=== PATIENT | female | born 1970 | race African-American/Black ===

== ENCOUNTER → 2022-10-24 14:30 | Outpatient (BNVA) | payer OTHER, SELFPAY | PROVIDERS: PCP Internal Medicine; Visit Provider Psychiatry & Neurology Neurology | DX: G90.09 Other idiopathic peripheral autonomic neuropathy (principal); R06.83 Snoring; G47.10 Hypersomnia, unspecified; E66.9 Obesity, unspecified; Z68.43 Body mass index [BMI] 50.0-59.9, adult; Z98.84 Bariatric surgery status | CPT/HCPCS: 99202 ==

== ENCOUNTER → 2022-11-08 12:57 | Outpatient (REF) | payer OTHER, SELFPAY | LOC: HO.SL 12:57 | PROVIDERS: PCP Internal Medicine; Visit Provider Psychiatry & Neurology Neurology | DX: G47.33 Obstructive sleep apnea (adult) (pediatric) (principal); G47.10 Hypersomnia, unspecified; E66.9 Obesity, unspecified; R06.83 Snoring | CPT/HCPCS: 95806 ==

== ENCOUNTER → 2022-12-12 20:30 | Outpatient (REF) | payer OTHER, SELFPAY | LOC: HO.SL 20:30 | PROVIDERS: PCP Internal Medicine; Visit Provider Nurse Practitioner Family | DX: G47.33 Obstructive sleep apnea (adult) (pediatric) (principal) | CPT/HCPCS: 95811 ==

== ENCOUNTER 2022-12-14 13:21 | Outpatient (REF) | payer OTHER, SELFPAY ==
--- NOTE | 2022-12-14 10:30 | EMG_ITS ---
Bilateral tibial and peroneal motor studies were performed . Bilateral superficial peroneal, sural, median, and lateral plantar sensory studies were performed. Tibial H reflexes were obtained and paraspinal muscles were tested with a needle. 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 MD EBONY Arroyo/JOSE DANIEL / [id number]
== END 2022-12-14 13:22 | disposition home or self-care (01) ==
LOC: HO.NEURO 13:21
PROVIDERS: PCP Internal Medicine; Visit Provider Psychiatry & Neurology Neurology
DX: G62.89 Other specified polyneuropathies (principal)
CPT/HCPCS: 95886; 95913

== ENCOUNTER → 2023-01-25 13:58 | Outpatient (BNVA) | payer OTHER, SELFPAY | PROVIDERS: PCP Internal Medicine; Visit Provider Psychiatry & Neurology Neurology | DX: R20.0 Anesthesia of skin (principal); R20.2 Paresthesia of skin; G47.33 Obstructive sleep apnea (adult) (pediatric); G47.36 Sleep related hypoventilation in conditions classified elsewhere | CPT/HCPCS: 99212 ==

== ENCOUNTER → 2024-03-10 14:45 | Outpatient (BNVA) | payer OTHER, SELFPAY | PROVIDERS: PCP Internal Medicine; Visit Provider Student in an Organized Health Care Education/Training Program | DX: M15.9 Polyosteoarthritis, unspecified (principal); M17.0 Bilateral primary osteoarthritis of knee; E66.01 Morbid (severe) obesity due to excess calories; R21 Rash and other nonspecific skin eruption | CPT/HCPCS: 99202 ==

== ENCOUNTER → 2024-06-11 23:59 | Outpatient (BNV) | payer OTHER, SELFPAY | PROVIDERS: PCP Internal Medicine; Visit Provider Internal Medicine | DX: R07.9 Chest pain, unspecified (principal); I31.39 Other pericardial effusion (noninflammatory) | CPT/HCPCS: 99223; 99233 ==